=== PATIENT | female | born 1975 | race African-American/Black ===

== ENCOUNTER 2017-11-23 16:35 | Inpatient (IN) ==
[2017-11-23] MEDS ORDERED: METOCLOPRAMIDE 10 MG/2 ML VIAL IV STA (17:08)
[2017-11-23] MEDS ORDERED: PANTOPRAZOLE 40 MG VIAL IV STA (17:08)
[2017-11-23] MEDS ORDERED: NITROGLYCERIN 2% OINT 1 INCH/GM PACK TOP STA (17:08)
[2017-11-23] MEDS ORDERED: ONDANSETRON 4 MG/2 ML VIAL IV STA (17:08)
[2017-11-23] MEDS ORDERED: ASPIRIN 325 MG TABLET PO STA (17:08)
[2017-11-23 17:18] LABS: Basophils # 0.1 10*3/uL (0.0-0.2); Basophils % 0.4 % (0.0-0.8); Eosinophils # 0.6 10*3/uL (0.0-0.87); Eosinophils % 3.3 % (0.00-10.9); Hematocrit 39.7 VOL% (35.7-47.0); Hemoglobin 13.5 GM/DL (12.0-16.0); Immature Granulocytes % 0.6 %; Lymphocytes # 6.5 10*3/uL (1.4-4.0); Lymphocytes % 38.7 % (21.3-54.2); Mean Corpuscular Hemoglobin 30 PG (27-34); Mean Corpuscular Volume 88.4 FL (87-102); Mean Platelet Volume 11.3 FL (9.6-12.0); Monocytes % 5.9 % (1.7-12.7); Neutrophils # 8.6 10*3/uL (1.4-7.4); Neutrophils % 51.1 % (38.7-73.9); Platelet Count 229 T/CUMM (130-400); Red Blood Count 4.49 MC/CUMM (3.8-5.5); Red Cell Distribution Width 12.7 % (9.3-17.3); White Blood Count 16.8 T/CUMM (4-12)
[2017-11-23 17:26] LABS: PT Patient Result 10.3 SECS; Partial Thromboplastin Time 22.5 SECS (0-40)
[2017-11-23 17:47] LABS: Alanine Aminotransferase 36 U/L (13-56); Albumin 3.1 G/DL (3.4-5.0); Alkaline Phosphatase 52 U/L (45-117); Aspartate Amino Transferase 25 U/L (0-37); Blood Urea Nitrogen 13 MG/DL (7-18); Calcium 8.1 MG/DL (8.5-10.1); Glucose 121 MG/DL (74-106); Osmolality,Calculated 283.1 MOS/KG (273-304); Potassium 3.1 MMOL/L (3.5-5.1); Sodium 142 MMOL/L (136-145); Total Protein 7.5 G/DL (6.4-8.3); Troponin I Only < 0.015 NG/ML (0.00-0.045)
[2017-11-23 17:54] LABS: Apearance,Urine CLEAR (Clear); Bacteria,Urine Occasional /HPF (Few); Bilirubin,Urine Negative (Negative); Blood, Urine Negative (Negative); Glucose,Urine (UA) Negative (Negative); Ketones,Urine Negative (Negative); Mucus,Urine Occasional /LPF (Occasional); Nitrite,Urine Negative (Negative); Protein,Urine 30 MG/DL; RBC,Urine 3 /HPF (0-4); Squamous Epithelial Cell,Urine Occasional /HPF (0-10); Urine Color Yellow (Yellow); Urine Specific Gravity 1.016 (1.001-1.035); WBC,Urine 7 /HPF (0-6)
[2017-11-23] MEDS ORDERED: POTASSIUM BICARB EFFERVESCENT 25 MEQ TABLET PO ONE (17:55)
[2017-11-23] MEDS ORDERED: AMPICILLIN/SULBACTAM 3,000 MG in SODIUM CHLORIDE 0.9% 100 ML IV STA (18:00)
[2017-11-23 18:06] LABS: Barbiturates Screen,Urine Negative (Negative); Benzodiazepines Screen,Urine Negative (Negative); Cannabinoid Screen,Urine Negative (Negative); Opiate Screen,Urine Negative (Negative); Phencyclidine Screen,Urine Negative (Negative)
[2017-11-23] MEDS ORDERED: METOPROLOL TARTRATE 5 MG/5 ML VIAL IV ONE (19:00)
[2017-11-23] MEDS ORDERED: CEFUROXIME 1,500 MG VIAL ONE (19:26)
[2017-11-23] MEDS ORDERED: VANCOMYCIN 1,000 MG VIAL ONE (19:27)
[2017-11-23] MEDS ORDERED: SODIUM CHLORIDE 0.9% 1,000 ML IV PRN ×2 (19:29→19:33)
[2017-11-23] MEDS ORDERED: VECURONIUM 10 MG VIAL IV ONE (19:31)
[2017-11-23] MEDS ORDERED: SUFentanil 250 MCG/5 ML AMP ONE ×2 (19:31→23:12)
[2017-11-23] MEDS ORDERED: MIDAZOLAM 10 MG/2 ML VIAL ONE (19:31)
[2017-11-23] MEDS ORDERED: NITROPRUSSIDE 50 MG/2 ML VIAL ONE (19:50)
[2017-11-23] MEDS ORDERED: POTASSIUM CHLORIDE RIDER 100 ML IV ONE (19:50)
[2017-11-23] MEDS ORDERED: PHENYLEPHRINE DRIP 40 MG/250 ML PREMIX IV ONE (19:50)
[2017-11-23] MEDS ORDERED: CALCIUM CHLORIDE 1,000 MG/10 ML SYRINGE IV ONE (19:50)
[2017-11-23] MEDS ORDERED: SODIUM BICARBONATE 50 MEQ/50 ML SYRINGE IV ONE (19:51)
[2017-11-23 20:47] LABS: ABG Base Excess -3.3 MMOL/L (-2.5-2.5); ABG HCO3 21.7 MMOL/L (20-26); ABG Oxygen Saturation 98.8 % (95-100); ABG PCO2 45.6 MM HG (35-48); ABG PH 7.313 (7.35-7.45); ABG TCO2 20.7 MMOL/L (23-27); Glucose Heart Surgery 110 MG/DL (74-106); Hematocrit Heart Surgery 36.2 PERCENT (37-47); Hemoglobin Heart Surgery 11.7 G/DL (12.0-16.0); Ionized Calcium Arterial 1.09 MMOL/L (1.21-1.46); PCO2 Patient Temp Arterial 45.6 MMHG; PH Patient Temp Arterial 7.313; Patient Temperature 37 CELCIUS; Potassium Heart/CVR 3.3 MMOL/L (3.5-5.1); Sodium Heart/CVR 142 MMOL/L (135-145)
[2017-11-23] MEDS ORDERED: ALBUMIN 5% 12.5 GM/250 ML VIAL IV ONE (20:47)
[2017-11-23 22:10] LABS: Hemoglobin Heart Surgery 8.1 G/DL (12.0-16.0); PCO2 Patient Temp Venous 51.1 MM HG; PH Patient Temp Venous 7.287; PO2 Patient Temp Venous 88.9 MM HG; Potassium Heart/CVR 3.5 MMOL/L (3.5-5.1); VBG Base Excess -2.8 MEQ/L (0-4); VBG HCO3 23.9 MEQ/L (24-28); VBG Oxygen Saturation 94.4 %; VBG PCO2 51.1 MMHG (41-51); VBG PH 7.287; VBG PO2 88.9 MMHG (17-40)
[2017-11-23 23:20] LABS: Hematocrit Heart Surgery 22.9 PERCENT (37-47); Hemoglobin Heart Surgery 7.3 G/DL (12.0-16.0); PCO2 Patient Temp Venous 31.2 MM HG; PH Patient Temp Venous 7.446; PO2 Patient Temp Venous 25.6 MM HG; Potassium Heart/CVR 5.8 MMOL/L (3.5-5.1); VBG Base Excess -1.4 MEQ/L (0-4); VBG Oxygen Saturation 79.2 %; VBG PCO2 48.2 MMHG (41-51); VBG PH 7.319; VBG PO2 47.6 MMHG (17-40)
[2017-11-23] MEDS ORDERED: THROMBIN TOPICAL (RECOMBINANT) 5,000 UNIT VIAL TOP ONE (23:35)
[2017-11-23 23:56] LABS: Hematocrit Heart Surgery 21.1 PERCENT (37-47); Hemoglobin Heart Surgery 6.7 G/DL (12.0-16.0); PCO2 Patient Temp Venous 40.3 MM HG; PH Patient Temp Venous 7.352; PO2 Patient Temp Venous 33.8 MM HG; Potassium Heart/CVR 5.4 MMOL/L (3.5-5.1); VBG Base Excess -2.9 MEQ/L (0-4); VBG HCO3 21.6 MEQ/L (24-28); VBG Oxygen Saturation 64.4 %; VBG PCO2 42.3 MMHG (41-51); VBG PH 7.338; VBG PO2 36.3 MMHG (17-40)
[2017-11-24 01:13] LABS: Hematocrit Heart Surgery 23.4 PERCENT (37-47); Hemoglobin Heart Surgery 7.5 G/DL (12.0-16.0); PCO2 Patient Temp Venous 48.6 MM HG; PH Patient Temp Venous 7.274; PO2 Patient Temp Venous 30.1 MM HG; Potassium Heart/CVR 4.4 MMOL/L (3.5-5.1); VBG Base Excess -4.3 MEQ/L (0-4); VBG HCO3 20.4 MEQ/L (24-28); VBG Oxygen Saturation 57.6 %; VBG PCO2 48.6 MMHG (41-51); VBG PH 7.274; VBG PO2 30.1 MMHG (17-40)
[2017-11-24 02:05] LABS: ABG Base Excess -17.5 MMOL/L (-2.5-2.5); ABG HCO3 11.5 MMOL/L (20-26); ABG Oxygen Saturation 99.4 % (95-100); ABG PCO2 40.2 MM HG (35-48); ABG TCO2 11.5 MMOL/L (23-27); Glucose Heart Surgery 326 MG/DL (74-106); Hematocrit Heart Surgery 33.4 PERCENT (37-47); Hemoglobin Heart Surgery 10.8 G/DL (12.0-16.0); PCO2 Patient Temp Arterial 40.2 MMHG; PH Patient Temp Arterial 7.085; Patient Temperature 37 CELCIUS; Sodium Heart/CVR 138 MMOL/L (135-145)
[2017-11-24 02:14] LABS: ABG PH 7.085 (7.35-7.45)
[2017-11-24 02:15] LABS: Potassium Heart/CVR 6.2 MMOL/L (3.5-5.1)
[2017-11-24] MEDS ORDERED: CALCIUM CHLORIDE 1,000 MG/10 ML VIAL IV ONE ×2 (02:18→03:31)
[2017-11-24] MEDS ORDERED: DEXTROSE 5% KCL 20 MEQ 40 MEQ/2,000 ML BAG IV ONE (02:19)
[2017-11-24] MEDS ORDERED: MAGNESIUM SULFATE 1 GM/2 ML VIAL ONE (02:19)
[2017-11-24] MEDS ORDERED: ALBUMIN 25% 25 GM/100 ML VIAL IV ONE (02:19)
[2017-11-24] MEDS ORDERED: PROTAMINE SULFATE 250 MG/25 ML VIAL IV ONE (02:19)
[2017-11-24] MEDS ORDERED: LIDOCAINE 1% 5 ML VIAL ONE (02:19)
[2017-11-24] MEDS ORDERED: SODIUM BICARBONATE 50 MEQ/50 ML SYRINGE IV ONE ×3 (02:19→09:14)
[2017-11-24] MEDS ORDERED: HEPARIN 10,000 UNIT/10 ML VIAL ONE (02:20)
[2017-11-24] MEDS ORDERED: MANNITOL 12.5 GM/50 ML VIAL IV ONE (02:20)
[2017-11-24] MEDS ORDERED: methylPREDNISolone SOD SUC 1,000 MG/8 ML VIAL ONE (02:20)
[2017-11-24] MEDS ORDERED: FUROSEMIDE 20 MG/2 ML VIAL ONE (02:20)
[2017-11-24] MEDS ORDERED: POTASSIUM CHLORIDE 20 MEQ/10 ML VIAL ONE (02:20)
[2017-11-24] MEDS ORDERED: ePHEDrine 50 MG/ML AMP IV PRN (03:00)
[2017-11-24] MEDS ORDERED: MAGNESIUM SULF RIDER 2 GM in PREMIX 1 EACH IV PRN (03:03)
[2017-11-24] MEDS ORDERED: POTASSIUM CHLORIDE RIDER 10 MEQ in PREMIX 1 EACH IV PRN (03:03)
[2017-11-24] MEDS ORDERED: CALCIUM CHLORIDE 1,000 MG/10 ML SYRINGE IV PRN (03:03)
[2017-11-24] MEDS ORDERED: MIDAZOLAM 2 MG/2 ML VIAL IV PRN (03:03)
[2017-11-24] MEDS ORDERED: ONDANSETRON 4 MG/2 ML VIAL IV PRN (03:03)
[2017-11-24] MEDS ORDERED: ACETAMINOPHEN 650 MG SUPP RECTAL PRN (03:03)
[2017-11-24] MEDS ORDERED: DEXTROSE 50% 25 GM/50 ML VIAL IV PRN ×2 (03:03)
[2017-11-24] MEDS ORDERED: MORPHINE 4 MG/1 ML VIAL IV PRN (03:03)
[2017-11-24] MEDS ORDERED: INSULIN REGULAR 100 UNIT/ML IV PRN (03:03)
[2017-11-24] MEDS ORDERED: VECURONIUM 10 MG VIAL IV PRN ×2 (03:03)
[2017-11-24] MEDS ORDERED: MAGNESIUM SULF RIDER 4 GM in PREMIX 1 EACH IV PRN (03:03)
[2017-11-24] MEDS ORDERED: MIDAZOLAM 10 MG/2 ML VIAL IV PRN (03:03)
[2017-11-24] MEDS ORDERED: MORPHINE 10 MG/1 ML VIAL IV PRN (03:03)
[2017-11-24] MEDS ORDERED: INSULIN REGULAR 100 UNIT/ML IV ONE (03:03)
[2017-11-24] MEDS ORDERED: NITROPRUSSIDE 100 MG in DEXTROSE 5% 250 ML IV PRN (03:03)
[2017-11-24] MEDS ORDERED: EPINEPHrine 1 MG/ML VIAL ONE (03:04)
[2017-11-24] MEDS: SODIUM CHLORIDE 0.45% 1,000 ML IV SCH ×2 (03:16→03:17)
[2017-11-24] MEDS ORDERED: FUROSEMIDE 100 MG/10 ML VIAL ONE (03:18)
[2017-11-24] MEDS ORDERED: FUROSEMIDE 100 MG/10 ML VIAL IV ONE (03:20)
[2017-11-24] MEDS: PHENYLEPHRINE DRIP 40 MG/250 ML PREMIX IV PRN ×2 (03:23→12:58)
[2017-11-24] MEDS ORDERED: INSULIN REGULAR DRIP 100 ML IV SCH (03:30)
[2017-11-24] MEDS: FUROSEMIDE INJ 100 MG in SODIUM CHLORIDE 0.9% 90 ML IV SCH ×5 (03:30→22:44)
[2017-11-24] MEDS ORDERED: SEVOFLURANE 1 UNIT/15 MINUTE INH ONE (03:31)
[2017-11-24] MEDS ORDERED: HEPARIN/NACL 0.9% 2 UNITS/ML 500 ML IV ONE (03:31)
[2017-11-24] MEDS ORDERED: ePHEDrine 50 MG/ML AMP ONE (03:32)
[2017-11-24] MEDS ORDERED: TRANEXAMIC ACID 1,000 MG/10 ML VIAL ONE (03:32)
[2017-11-24] MEDS ORDERED: PHENYLEPHRINE 10 MG/1 ML VIAL IV ONE ×2 (03:32)
[2017-11-24] MEDS ORDERED: diphenhydrAMINE 50 MG/1 ML VIAL ONE (03:32)
[2017-11-24] MEDS ORDERED: methylPREDNISolone SOD SUC 125 MG/2 ML VIAL ONE (03:32)
[2017-11-24] MEDS ORDERED: LABETALOL 100 MG/20 ML VIAL IV ONE (03:32)
[2017-11-24] MEDS ORDERED: VECURONIUM 10 MG VIAL IV ONE (03:32)
[2017-11-24] MEDS ORDERED: MIDAZOLAM 10 MG/2 ML VIAL ONE (03:32)
[2017-11-24 03:33] LABS: ABG Base Excess -9.5 MMOL/L (-2.5-2.5); ABG HCO3 16.8 MMOL/L (20-26); ABG Oxygen Saturation 99.5 % (95-100); ABG PCO2 41.7 MM HG (35-48); ABG PH 7.233 (7.35-7.45); ABG TCO2 16.3 MMOL/L (23-27); Glucose Heart Surgery 270 MG/DL (74-106); Hematocrit Heart Surgery 31.6 PERCENT (37-47); Hemoglobin Heart Surgery 10.2 G/DL (12.0-16.0); Potassium Heart/CVR 3.9 MMOL/L (3.5-5.1)
[2017-11-24] MEDS ORDERED: NITROGLYCERIN DRIP 50 MG/250 ML BOTTLE IV ONE (03:33)
[2017-11-24] MEDS ORDERED: SODIUM CHLORIDE 0.9% 750 ML IV ONE (03:33)
[2017-11-24] MEDS ORDERED: SODIUM CHLORIDE 0.9% 3,000 ML IV ONE (03:33)
[2017-11-24] MEDS ORDERED: LACTATED RINGERS 2,000 ML IV ONE (03:33)
[2017-11-24] MEDS ORDERED: ETOMIDATE 40 MG/20 ML VIAL IV ONE (03:33)
[2017-11-24] MEDS ORDERED: METOPROLOL TARTRATE 5 MG/5 ML VIAL IV ONE (03:33)
[2017-11-24 03:42] LABS: Basophils # 0.1 10*3/uL (0.0-0.2); Basophils % 0.3 % (0.0-0.8); Eosinophils # 0.1 10*3/uL (0.0-0.87); Eosinophils % 0.6 % (0.00-10.9); Immature Granulocytes % 4.4 %; Immature Granulocytes Absolute 0.71 #; Lymphocytes # 4.1 10*3/uL (1.4-4.0); Lymphocytes % 25.2 % (21.3-54.2); Mean Corpuscular HGB Conc 33.3 GM/DL (32-36); Mean Corpuscular Hemoglobin 30 PG (27-34); Mean Corpuscular Volume 91.2 FL (87-102); Monocytes # 1.3 10*3/uL (0.11-0.8); Monocytes % 7.8 % (1.7-12.7); NRBC # 0.04 10*3/uL; Neutrophils % 61.7 % (38.7-73.9); Platelet Count 54 T/CUMM (130-400); Red Blood Count 3.29 MC/CUMM (3.8-5.5); Red Cell Distribution Width 15.8 % (9.3-17.3); White Blood Count 16.2 T/CUMM (4-12)
[2017-11-24 03:59] LABS: Albumin 1.5 G/DL (3.4-5.0); Bilirubin,Total 1.3 MG/DL (0.2-1.0); Calcium 8.3 MG/DL (8.5-10.1); Osmolality,Calculated 309.7 MOS/KG (273-304); Potassium 4.1 MMOL/L (3.5-5.1); Total Protein 2.3 G/DL (6.4-8.3)
[2017-11-24 04:17] LABS: CKMB % 5.2 %
[2017-11-24] MEDS: ALBUMIN 5% 12.5 GM in PREMIX 1 EACH IV PRN ×4 (04:28→13:28)
[2017-11-24 04:58] LABS: Troponin I Only 9.73 NG/ML (0.00-0.045)
[2017-11-24 05:01] LABS: Band Neutrophils 4 % (0-10); Eosinophils 2 % (0-10); Lymphocytes 23 % (20-55); Metamyelocytes 1 %; Segmented Neutrophils 66 % (50-85); Total Cells Counted 100
[2017-11-24 05:02] LABS: Hypochromasia Slight; Microcytosis 1+
[2017-11-24 05:03] LABS: Burr Cells Slight; Platelet Estimate Decreased
[2017-11-24 05:14] LABS: PT Patient Result > 200.0 SECS
[2017-11-24 05:18] LABS: INR > 20.0; Partial Thromboplastin Time 187.9 SECS (0-40)
[2017-11-24 06:15] LABS: ABG HCO3 18.6 MMOL/L (20-26); ABG Oxygen Saturation 98.7 % (95-100); ABG PCO2 41.8 MM HG (35-48); ABG PH 7.266 (7.35-7.45); ABG PO2 223.5 MM HG (80-95); ABG TCO2 19.9 MMOL/L (23-27); Glucose Heart Surgery 243 MG/DL (74-106); Hemoglobin Heart Surgery 12.7 G/DL (12.0-16.0)
[2017-11-24 08:55] LABS: ABG Base Excess -6.8 MMOL/L (-2.5-2.5); ABG HCO3 18.9 MMOL/L (20-26); ABG Oxygen Saturation 98.9 % (95-100); ABG PH 7.274 (7.35-7.45); ABG TCO2 17.8 MMOL/L (23-27)
[2017-11-24 08:58] LABS: Basophils # 0.1 10*3/uL (0.0-0.2); Basophils % 0.3 % (0.0-0.8); Eosinophils # 0.1 10*3/uL (0.0-0.87); Eosinophils % 0.3 % (0.00-10.9); Hematocrit 36.8 VOL% (35.7-47.0); Immature Granulocytes % 3.3 %; Immature Granulocytes Absolute 0.64 #; Lymphocytes # 3.6 10*3/uL (1.4-4.0); Lymphocytes % 18.6 % (21.3-54.2); Mean Corpuscular Hemoglobin 30 PG (27-34); Mean Corpuscular Volume 87.8 FL (87-102); Mean Platelet Volume 10.6 FL (9.6-12.0); Monocytes # 1.9 10*3/uL (0.11-0.8); Monocytes % 9.9 % (1.7-12.7); NRBC # 0.27 10*3/uL; Neutrophils # 13.2 10*3/uL (1.4-7.4); Neutrophils % 67.6 % (38.7-73.9); Platelet Count 61 T/CUMM (130-400); Red Cell Distribution Width 15.6 % (9.3-17.3); White Blood Count 19.5 T/CUMM (4-12)
[2017-11-24 09:02] LABS: Hemoglobin 12.5 GM/DL (12.0-16.0); Red Blood Count 4.19 MC/CUMM (3.8-5.5)
[2017-11-24 09:20] LABS: Atypical Lymphocytes Few; Band Neutrophils 2 % (0-10); Eosinophils 1 % (0-10); Hypochromasia Slight; Lymphocytes 22 % (20-55); Microcytosis Slight; Nucleated Red Blood Cells 6 (0-5); Segmented Neutrophils 66 % (50-85); Total Cells Counted 100
[2017-11-24 09:21] LABS: Platelet Estimate Decreased
[2017-11-24 10:11] LABS: Albumin 2.6 G/DL (3.4-5.0); Bilirubin,Total 1.9 MG/DL (0.2-1.0); Calcium 8.7 MG/DL (8.5-10.1); Osmolality,Calculated 302.9 MOS/KG (273-304); Potassium 4.5 MMOL/L (3.5-5.1)
[2017-11-24 10:38] LABS: ABG Base Excess -2.2 MMOL/L (-2.5-2.5); ABG Oxygen Saturation 98.2 % (95-100); ABG PCO2 41.2 MM HG (35-48); ABG PH 7.365 (7.35-7.45); ABG PO2 140.8 MM HG (80-95); ABG TCO2 24.3 MMOL/L (23-27)
[2017-11-24 10:49] LABS: CKMB % 7.2 %
[2017-11-24 10:52] LABS: Troponin I Only 30.6 NG/ML (0.00-0.045)
[2017-11-24] MEDS: DOBUTamine 500 MG/250 ML PREMIX IV PRN (11:12)
[2017-11-24] MEDS: CHLORHEXIDINE 0.12% ORAL RINSE 60 ML BOTTLE SWISH/SPIT SCH ×2 (11:13→20:22)
[2017-11-24] MEDS: CEFUROXIME INJ 1,500 MG in SYRINGE 1 EACH IV SCH ×2 (11:26→22:17)
[2017-11-24] MEDS: LACTATED RINGERS 250 ML IV PRN ×3 (12:56→16:15)
[2017-11-24 14:53] LABS: ABG Base Excess 0.3 MMOL/L (-2.5-2.5); ABG HCO3 24.7 MMOL/L (20-26); ABG Oxygen Saturation 98.1 % (95-100); ABG PCO2 43.3 MM HG (35-48); ABG PH 7.379 (7.35-7.45); ABG PO2 98.6 MM HG (80-95); ABG TCO2 23.6 MMOL/L (23-27)
[2017-11-24 19:03] LABS: ABG Base Excess 1.1 MMOL/L (-2.5-2.5); ABG HCO3 25.4 MMOL/L (20-26); ABG Oxygen Saturation 95.4 % (95-100); ABG PCO2 43.9 MM HG (35-48); ABG PH 7.386 (7.35-7.45); ABG PO2 75.3 MM HG (80-95); ABG TCO2 24.5 MMOL/L (23-27); Glucose Heart Surgery 134 MG/DL (74-106); Hemoglobin Heart Surgery 8.4 G/DL (12.0-16.0); Potassium Heart/CVR 3.9 MMOL/L (3.5-5.1)
[2017-11-24 19:48] LABS: CKMB % 6.7 %
[2017-11-24] MEDS: INSULIN REGULAR 100 UNIT/ML SUBCUT SCH (20:22)
[2017-11-24] MEDS: POTASSIUM CHLORIDE RIDER 20 MEQ in PREMIX 1 EACH IV PRN (20:26)
[2017-11-24] MEDS ORDERED: SODIUM CHLORIDE 0.9% IV ONE (23:00)
[2017-11-24] MEDS ORDERED: LABETALOL IV ONE (23:00)
[2017-11-24] MEDS: LABETALOL INJ 200 MG in SODIUM CHLORIDE 0.9% 160 ML IV SCH (23:22)
[2017-11-25] MEDS: INSULIN REGULAR 100 UNIT/ML SUBCUT SCH ×5 (00:04→20:36)
[2017-11-25] MEDS: PHENYLEPHRINE DRIP 40 MG/250 ML PREMIX IV PRN (01:03)
[2017-11-25] MEDS: SODIUM CHLORIDE 0.45% 1,000 ML IV SCH ×2 (02:45→02:46)
[2017-11-25 03:34] LABS: ABG Base Excess 0.2 MMOL/L (-2.5-2.5); ABG HCO3 24.6 MMOL/L (20-26); ABG Oxygen Saturation 94.6 % (95-100); ABG PCO2 38.3 MM HG (35-48); ABG PH 7.416 (7.35-7.45); ABG PO2 71.5 MM HG (80-95); ABG TCO2 23.2 MMOL/L (23-27)
[2017-11-25] MEDS: FUROSEMIDE INJ 100 MG in SODIUM CHLORIDE 0.9% 90 ML IV SCH ×4 (03:45→18:53)
[2017-11-25 03:47] LABS: Basophils % 0.1 % (0.0-0.8); Hematocrit 21.1 VOL% (35.7-47.0); Hemoglobin 7.3 GM/DL (12.0-16.0); Immature Granulocytes % 0.5 %; Immature Granulocytes Absolute 0.08 #; Lymphocytes # 1.8 10*3/uL (1.4-4.0); Lymphocytes % 11.8 % (21.3-54.2); Mean Corpuscular HGB Conc 34.6 GM/DL (32-36); Mean Corpuscular Hemoglobin 30 PG (27-34); Mean Corpuscular Volume 87.6 FL (87-102); Mean Platelet Volume 13.2 FL (9.6-12.0); Monocytes # 1.6 10*3/uL (0.11-0.8); Monocytes % 10.3 % (1.7-12.7); NRBC # 0.03 10*3/uL; Neutrophils # 11.9 10*3/uL (1.4-7.4); Neutrophils % 77.3 % (38.7-73.9); Red Blood Count 2.41 MC/CUMM (3.8-5.5); Red Cell Distribution Width 16.2 % (9.3-17.3); White Blood Count 15.4 T/CUMM (4-12)
[2017-11-25 03:53] LABS: Platelet Count 44 T/CUMM (130-400)
[2017-11-25 04:03] LABS: INR 1.1; PT Patient Result 11.5 SECS; Partial Thromboplastin Time 33.4 SECS (0-40)
[2017-11-25 04:41] LABS: Albumin 2.4 G/DL (3.4-5.0); Bilirubin,Direct 0.26 MG/DL (0.0-0.20); Bilirubin,Total 1.2 MG/DL (0.2-1.0); Calcium 7.9 MG/DL (8.5-10.1); Potassium 4.1 MMOL/L (3.5-5.1); Total Protein 4.1 G/DL (6.4-8.3)
[2017-11-25 04:57] LABS: CKMB % 3.8 %
[2017-11-25 05:36] LABS: Band Neutrophils 5 % (0-10); Hypochromasia 1+; Lymphocytes 9 % (20-55); Microcytosis Slight; Ovalocytes Slight; Platelet Estimate Decreased; Segmented Neutrophils 80 % (50-85); Total Cells Counted 100
[2017-11-25] MEDS: ALBUMIN 5% 12.5 GM in PREMIX 1 EACH IV PRN ×2 (05:43→05:59)
[2017-11-25] MEDS: LABETALOL INJ 200 MG in SODIUM CHLORIDE 0.9% 160 ML IV SCH ×2 (08:45→22:32)
[2017-11-25 10:17] LABS: ABG Base Excess 1.6 MMOL/L (-2.5-2.5); ABG HCO3 25.4 MMOL/L (20-26); ABG Oxygen Saturation 97.5 % (95-100); ABG PCO2 36.7 MM HG (35-48); ABG PH 7.458 (7.35-7.45); ABG PO2 120.8 MM HG (80-95); ABG TCO2 26.5 MMOL/L (23-27); Glucose Heart Surgery 150 MG/DL (74-106); Hemoglobin Heart Surgery 9.2 G/DL (12.0-16.0); Potassium Heart/CVR 3.5 MMOL/L (3.5-5.1)
[2017-11-25] MEDS ORDERED: SODIUM CHLORIDE 0.45% 1,000 ML IV SCH (11:11)
[2017-11-25] MEDS: CHLORHEXIDINE 0.12% ORAL RINSE 60 ML BOTTLE SWISH/SPIT SCH ×2 (12:17→20:36)
[2017-11-25] MEDS: CEFUROXIME INJ 1,500 MG in SYRINGE 1 EACH IV SCH (12:17)
[2017-11-25] MEDS: methylPREDNISolone SOD SUC 125 MG/2 ML VIAL IV SCH ×2 (12:18→18:34)
[2017-11-25] MEDS: DOBUTamine 500 MG/250 ML PREMIX IV PRN (12:31)
[2017-11-25] MEDS: NITROGLYCERIN DRIP 50 MG/250 ML BOTTLE IV PRN (18:20)
[2017-11-25 18:33] LABS: ABG Base Excess 2.9 MMOL/L (-2.5-2.5); ABG HCO3 26.9 MMOL/L (20-26); ABG Oxygen Saturation 93.9 % (95-100); ABG PCO2 37.9 MM HG (35-48); ABG PH 7.457 (7.35-7.45); ABG PO2 68.8 MM HG (80-95); ABG TCO2 24.6 MMOL/L (23-27); Glucose Heart Surgery 198 MG/DL (74-106); Hematocrit Heart Surgery 28.4 PERCENT (37-47); Hemoglobin Heart Surgery 9.2 G/DL (12.0-16.0); Potassium Heart/CVR 3.1 MMOL/L (3.5-5.1)
[2017-11-25] MEDS: POTASSIUM CHLORIDE RIDER 20 MEQ in PREMIX 1 EACH IV PRN ×2 (18:45→20:41)
[2017-11-25] MEDS ORDERED: KETOROLAC 30 MG/1 ML VIAL IV PRN (21:04)
[2017-11-26] MEDS: INSULIN REGULAR 100 UNIT/ML SUBCUT SCH ×7 (00:04→23:46)
[2017-11-26] MEDS: POTASSIUM CHLORIDE RIDER 20 MEQ in PREMIX 1 EACH IV PRN ×2 (00:04→00:34)
[2017-11-26] MEDS: FUROSEMIDE INJ 100 MG in SODIUM CHLORIDE 0.9% 90 ML IV SCH ×2 (00:06→04:59)
[2017-11-26] MEDS: methylPREDNISolone SOD SUC 125 MG/2 ML VIAL IV SCH ×3 (02:37→18:36)
[2017-11-26 03:45] LABS: ABG Base Excess 3.6 MMOL/L (-2.5-2.5); ABG HCO3 26.4 MMOL/L (20-26); ABG Oxygen Saturation 93.9 % (95-100); ABG PCO2 32.8 MM HG (35-48); ABG PH 7.523 (7.35-7.45); ABG PO2 78.8 MM HG (80-95); ABG TCO2 27.4 MMOL/L (23-27)
[2017-11-26 03:50] LABS: Basophils % 0.1 % (0.0-0.8); Hematocrit 24.6 VOL% (35.7-47.0); Hemoglobin 8.7 GM/DL (12.0-16.0); Immature Granulocytes % 0.6 %; Immature Granulocytes Absolute 0.09 #; Lymphocytes # 1.2 10*3/uL (1.4-4.0); Lymphocytes % 7.9 % (21.3-54.2); Mean Corpuscular HGB Conc 35.4 GM/DL (32-36); Mean Corpuscular Hemoglobin 30 PG (27-34); Mean Platelet Volume 13.8 FL (9.6-12.0); Monocytes # 1.1 10*3/uL (0.11-0.8); Monocytes % 7.4 % (1.7-12.7); NRBC # 0.07 10*3/uL; Neutrophils # 12.5 10*3/uL (1.4-7.4); Platelet Count 40 T/CUMM (130-400); Red Blood Count 2.93 MC/CUMM (3.8-5.5); White Blood Count 14.9 T/CUMM (4-12)
[2017-11-26 04:16] LABS: Albumin 2.6 G/DL (3.4-5.0); Bilirubin,Direct 0.25 MG/DL (0.0-0.20); Bilirubin,Total 1.4 MG/DL (0.2-1.0); Calcium 8.2 MG/DL (8.5-10.1); Osmolality,Calculated 320.2 MOS/KG (273-304); Potassium 3.7 MMOL/L (3.5-5.1); Total Protein 5.1 G/DL (6.4-8.3)
[2017-11-26 05:12] LABS: Band Neutrophils 2 % (0-10); Lymphocytes 2 % (20-55); Nucleated Red Blood Cells 1 (0-5); Segmented Neutrophils 93 % (50-85); Total Cells Counted 100
[2017-11-26 05:13] LABS: Hypochromasia 1+; Microcytosis Slight; Platelet Estimate Decreased
[2017-11-26] MEDS: DEXTROSE 5% 1,000 ML IV SCH (09:38)
[2017-11-26] MEDS: CHLORHEXIDINE 0.12% ORAL RINSE 60 ML BOTTLE SWISH/SPIT SCH ×2 (09:39→20:37)
[2017-11-26] MEDS: NITROGLYCERIN DRIP 50 MG/250 ML BOTTLE IV PRN (12:26)
[2017-11-26] MEDS ORDERED: LABETALOL 100 MG/20 ML VIAL IV ONE (13:27)
[2017-11-26] MEDS: LABETALOL INJ 200 MG in SODIUM CHLORIDE 0.9% 160 ML IV SCH ×2 (13:52→16:09)
[2017-11-26] MEDS ORDERED: FUROSEMIDE 40 MG/4 ML VIAL IV ONE (15:00)
[2017-11-27] MEDS: DEXTROSE 5% 1,000 ML IV SCH ×2 (02:20→18:51)
[2017-11-27] MEDS: methylPREDNISolone SOD SUC 125 MG/2 ML VIAL IV SCH ×3 (02:22→19:12)
[2017-11-27] MEDS ORDERED: FUROSEMIDE 40 MG/4 ML VIAL IV ONE (03:00)
[2017-11-27 03:28] LABS: ABG Base Excess 4.4 MMOL/L (-2.5-2.5); ABG HCO3 28.4 MMOL/L (20-26); ABG Oxygen Saturation 97.1 % (95-100); ABG PCO2 37.8 MM HG (35-48); ABG PH 7.479 (7.35-7.45); ABG PO2 86.1 MM HG (80-95); ABG TCO2 26.2 MMOL/L (23-27)
[2017-11-27] MEDS: INSULIN REGULAR 100 UNIT/ML SUBCUT SCH ×5 (03:52→21:30)
[2017-11-27 03:57] LABS: Basophils % 0.1 % (0.0-0.8); Hematocrit 22.9 VOL% (35.7-47.0); Hemoglobin 7.6 GM/DL (12.0-16.0); Immature Granulocytes Absolute 0.14 #; Lymphocytes % 6.8 % (21.3-54.2); Mean Corpuscular HGB Conc 33.2 GM/DL (32-36); Mean Corpuscular Hemoglobin 30 PG (27-34); Mean Corpuscular Volume 90.5 FL (87-102); Mean Platelet Volume 13.3 FL (9.6-12.0); Monocytes # 0.9 10*3/uL (0.11-0.8); Monocytes % 6.4 % (1.7-12.7); NRBC # 0.09 10*3/uL; Neutrophils # 12.4 10*3/uL (1.4-7.4); Neutrophils % 85.7 % (38.7-73.9); Red Blood Count 2.53 MC/CUMM (3.8-5.5); Red Cell Distribution Width 16.5 % (9.3-17.3); White Blood Count 14.5 T/CUMM (4-12)
[2017-11-27 04:01] LABS: Platelet Count 56 T/CUMM (130-400)
[2017-11-27 04:16] LABS: Albumin 2.6 G/DL (3.4-5.0); Bilirubin,Total 0.9 MG/DL (0.2-1.0); Calcium 8.4 MG/DL (8.5-10.1); Osmolality,Calculated 329.9 MOS/KG (273-304); Potassium 3.2 MMOL/L (3.5-5.1); Total Protein 5.3 G/DL (6.4-8.3)
[2017-11-27] MEDS: POTASSIUM CHLORIDE RIDER 20 MEQ in PREMIX 1 EACH IV PRN ×2 (05:06→05:37)
[2017-11-27 05:20] LABS: Band Neutrophils 4 % (0-10); Lymphocytes 7 % (20-55); Nucleated Red Blood Cells 4 (0-5); Segmented Neutrophils 81 % (50-85)
[2017-11-27 05:21] LABS: Hypochromasia 1+; Microcytosis 1+; Platelet Estimate Decreased; Target Cells Few
[2017-11-27 05:22] LABS: Polychromasia Few; Total Cells Counted 100
[2017-11-27] MEDS: CHLORHEXIDINE 0.12% ORAL RINSE 60 ML BOTTLE SWISH/SPIT SCH ×2 (09:00→21:30)
[2017-11-27] MEDS ORDERED: niCARdipine INJ 25 MG in SODIUM CHLORIDE 0.9% 240 ML IV PRN (19:28)
[2017-11-27] MEDS: LABETALOL INJ 200 MG in SODIUM CHLORIDE 0.9% 160 ML IV SCH (21:26)
[2017-11-28] MEDS: INSULIN REGULAR 100 UNIT/ML SUBCUT SCH (00:55)
[2017-11-28] MEDS: methylPREDNISolone SOD SUC 125 MG/2 ML VIAL IV SCH (04:41)
[2017-11-28] MEDS ORDERED: EPINEPHrine 1 MG/10 ML SYRINGE ONE (04:54)
[2017-11-28 07:40] VITALS: BP 53/41
== END 2017-11-28 05:15 | disposition expired | DRG 219 ==
LOC: EDBD → EDUNIT# → N.ED 16:35 → N.CVR 19:56 → N.ICU 11-25 09:28